=== PATIENT | male | born 1980 | race Caucasian/White ===

== ENCOUNTER 2017-05-13 11:49 | Day surgery (SDC) | payer BC ==
[~2017-05-13 11:49] MED LIST: Lactated Ringers 1,000 ML IV SCH; Sodium Chloride 0.9% 10 ML Syringe FLUSH PRN; Sodium Chloride 0.9% 2.5 ML Syringe FLUSH PRN
--- NOTE | 2017-05-13 12:49 | PCM.PREANE ---
Preanesthetic Assessment - Anesthesia/Transfusion/Family Hx Anesthesia History: Prior Anesthesia Without Reaction Other Type of Anesthesia Reaction Comment: states was nauseated after first ACL repair Family History of Anesthesia Reaction: No Transfusion History: No Prior Transfusion(s) Intubation History: Unknown - Review of Systems General: No Symptoms Pulmonary: No Symptoms Cardiovascular: No Symptoms Gastrointestinal: Difficulty Swallowing Neurological: No Symptoms Other: Reports: None - Physical Assessment Height: 5 ft 11 in Weight: 117.48 kg ASA Class: 2 Mental Status: Alert & Oriented x3 Airway Class: Mallampati = 2 Dentition: Reports: Bridge (3 teeth upper front) Thyro-Mental Finger Breadths: 2 Mouth Opening Finger Breadths: 3 ROM/Head Extension: Full Lungs: Clear to Auscultation, Normal Respiratory Effort Cardiovascular: Regular Rate, Regular Rhythm - Allergies Allergies/Adverse Reactions: Allergies Allergy/AdvReac Type Severity Reaction Status Date / Time No Known Allergies Allergy Verified 08/21/16 19:48 PreAnesthesia Questionnaire HEENT History: Reports: None Cardiovascular History: Reports: None Respiratory History: Reports: None Gastrointestinal History: Reports: None, Other (See Below) (progressive dysphagia, small hiatal hernia with associated ring) Psychiatric History: Reports: None Endocrine/Metabolic History: Reports: Obesity/BMI 30+ - Infectious Disease History Infectious Disease History: Reports: None - Past Surgical History Head Surgeries/Procedures: Reports: None HEENT Surgical History: Reports: None Respiratory Surgical History: Reports: None Musculoskeletal Surgical History: Reports: Arthroscopic Knee, Other (See Below) Other Musculoskeletal Surgeries/Procedures:: bilateral knee surgery - SUBSTANCE USE Smoking Status *Q: Former Smoker Recreational Drug Use History: No - HOME MEDS Home Medications: Home Meds . [No Known Home Meds] 08/21/16 [History] - CURRENT (IN HOUSE) MEDS Current Meds: Current Medications Lactated Ringer's (Ringers, Lactated) 1,000 mls @ 125 mls/hr IV ASDIRECTED BLAKE Sodium Chloride (Saline Flush) 10 ml FLUSH ASDIRECTED PRN PRN Reason: Keep Vein Open Sodium Chloride (Saline Flush) 2.5 ml FLUSH ASDIRECTED PRN PRN Reason: Keep Vein Open
[2017-05-13] MEDS ORDERED: fentaNYL 100 MCG/2 ML SDV ONE (12:55)
[2017-05-13] MEDS ORDERED: Propofol 200 MG/20 ML SDV ONE (12:55)
--- NOTE | 2017-05-13 12:56 | PCM.PREANE ---
Preanesthetic Assessment - Anesthesia/Transfusion/Family Hx Anesthesia History: Prior Anesthesia Without Reaction Other Type of Anesthesia Reaction Comment: states was nauseated after first ACL repair Family History of Anesthesia Reaction: No Transfusion History: No Prior Transfusion(s) Intubation History: Unknown - Review of Systems Other: Reports: None - Physical Assessment Height: 1.8 m Weight: 117.48 kg ASA Class: 2 Mental Status: Alert & Oriented x3 Airway Class: Mallampati = 2 Dentition: Reports: Normal Dentition, Bridge (3 teeth upper front (fixed)) Thyro-Mental Finger Breadths: 2 Mouth Opening Finger Breadths: 3 ROM/Head Extension: Full Lungs: Clear to Auscultation, Normal Respiratory Effort Cardiovascular: Regular Rate, Regular Rhythm - Allergies Allergies/Adverse Reactions: Allergies Allergy/AdvReac Type Severity Reaction Status Date / Time No Known Allergies Allergy Verified 08/21/16 19:48 - Blood Blood Available: No - Anesthesia Plan Pre-Op Medication Ordered: None - Acknowledgements Anesthesia Type Planned: MAC Pt an Appropriate Candidate for the Planned Anesthesia: Yes Alternatives and Risks of Anesthesia Discussed w Pt/Guardian: Yes Pt/Guardian Understands and Agrees with Anesthesia Plan: Yes PreAnesthesia Questionnaire HEENT History: Reports: None Cardiovascular History: Reports: None Respiratory History: Reports: None Gastrointestinal History: Reports: Other (See Below) (progressive dysphagia over past year, small hiatal hernia with associated ring on esophagogram) Psychiatric History: Reports: None Endocrine/Metabolic History: Reports: Obesity/BMI 30+ - Infectious Disease History Infectious Disease History: Reports: None - Past Surgical History Head Surgeries/Procedures: Reports: None HEENT Surgical History: Reports: None Respiratory Surgical History: Reports: None Musculoskeletal Surgical History: Reports: Arthroscopic Knee, Other (See Below) Other Musculoskeletal Surgeries/Procedures:: bilateral knee surgery - SUBSTANCE USE Smoking Status *Q: Former Smoker Recreational Drug Use History: No - HOME MEDS Home Medications: Home Meds . [No Known Home Meds] 08/21/16 [History] - CURRENT (IN HOUSE) MEDS Current Meds: Current Medications Lactated Ringer's (Ringers, Lactated) 1,000 mls @ 125 mls/hr IV ASDIRECTED BLAKE Sodium Chloride (Saline Flush) 10 ml FLUSH ASDIRECTED PRN PRN Reason: Keep Vein Open Sodium Chloride (Saline Flush) 2.5 ml FLUSH ASDIRECTED PRN PRN Reason: Keep Vein Open
--- NOTE | 2017-05-13 13:46 | PCM.OPNOTE ---
- General Post-Op/Procedure Note Date of Surgery/Procedure: 05/13/17 Operative Procedure(s): EGD Findings: Small hiatal hernia. Duodenitis. Pre Op Diagnosis: Dysphagia Post-Op Diagnosis: Duodenitis, hiatal hernia Anesthesia Technique: JAVIER Primary Surgeon: Jannie Gaytan Condition: Good
[2017-05-13 14:28] VITALS: BP 137/85
--- NOTE | 2017-05-13 20:38 | OR ---
SURGEON: KELLY WARREN MD DATE OF PROCEDURE: 05/13/2017 PREOPERATIVE DIAGNOSIS: Dysphagia. POSTOPERATIVE DIAGNOSES: Hiatal hernia, duodenitis. PROCEDURE PERFORMED: Diagnostic esophagogastroduodenoscopy. INSTRUMENT USED: Olympus endoscope. ANESTHESIA: MAC. EXTENT OF EXAM: To the second portion of duodenum. PREPARATION: Good. LIMITATIONS: None. INDICATION FOR EXAMINATION: The patient is a 37-year-old male, who presents with progressive dysphagia. He recently underwent an esophagram that showed a small hiatal hernia. He was started on omeprazole and scheduled for a diagnostic EGD. The patient and I discussed the procedure as well as expected perioperative course. We discussed the risks, including bleeding, or perforation. The patient verbalized understanding and wishes to proceed. PROCEDURE IN DETAIL: The patient was brought into the endoscopy suite and placed in a beach-chair position. A time-out was completed verifying the patient's name, age, date of , allergies, and procedure to be performed. A bite-block was placed in the patient's mouth and monitored anesthesia care was induced. Continuous oxygen was provided via nasal cannula throughout the procedure. After adequate sedation was achieved, a well-lubricated endoscope was placed in the patient's mouth and advanced under direct visualization to the level of second portion of duodenum. This appeared normal and a photograph was taken. The scope was then fully withdrawn while examining the color, texture, anatomy, and integrity of the mucosa of the upper GI tract. The patient was noted to have mild duodenitis in duodenal bulb. A photograph of this was taken. The scope was brought into the stomach. Photograph was taken of the pylorus as well as the esophageal hiatus. The patient's hiatal hernia appeared to be very small. Biopsies were taken of the gastric body, antrum, and fundus and sent to pathology for H. pylori testing. The scope was then brought in the distal esophagus and a photograph was taken of the hiatal hernia which again was noted to be small in size. There was no evidence of inflammation or esophagitis in the distal esophagus or around the hiatal hernia sac. The remainder of the esophagus appeared normal. The scope was then removed from the patient. The procedure was terminated. The patient was taken to the PACU in stable condition. ENDOSCOPIC DIAGNOSES: 1. Hiatal hernia. 2. Duodenitis. RECOMMENDATIONS: Follow up in clinic in 2 weeks. KLAUDIA HILLS /[id number]
== END 2017-05-13 14:15 | disposition home or self-care (01) ==
LOC: MW.SDS 11:49
PROVIDERS: ATTEND Surgery
DX: K29.50 Unspecified chronic gastritis without bleeding (principal); K29.80 Duodenitis without bleeding; K44.9 Diaphragmatic hernia without obstruction or gangrene; E66.9 Obesity, unspecified; Z68.36 Body mass index [BMI] 36.0-36.9, adult; Z98.890 Other specified postprocedural states; Z87.891 Personal history of nicotine dependence
CPT/HCPCS: 43239; 88305; 88312; J3010; J2704

== ENCOUNTER 2017-05-19 06:42 | Day surgery (SDC) | payer BC ==
[~2017-05-19 06:42] MED LIST changes: +ceFAZolin 2 GM in Premix Bag 1 BAG IV ONE
[2017-05-19] MEDS ORDERED: fentaNYL 100 MCG/2 ML SDV ONE (07:17)
[2017-05-19] MEDS ORDERED: Propofol 200 MG/20 ML SDV ONE (07:17)
[2017-05-19] MEDS ORDERED: Lidocaine 2% 5 ML SDV ONE (07:18)
[2017-05-19] MEDS ORDERED: ceFAZolin 1 GM Vial ONE ×2 (07:23→07:43)
[2017-05-19] MEDS ORDERED: Bupivacaine 0.5% 30 ML SDV ONE (07:24)
--- NOTE | 2017-05-19 07:32 | PCM.PREANE ---
Preanesthetic Assessment - Anesthesia/Transfusion/Family Hx Anesthesia History: Prior Anesthesia Reaction Type of Anesthesia Reaction: Excessive Nausea/Vomiting Other Type of Anesthesia Reaction Comment: states was nauseated after first ACL repair Family History of Anesthesia Reaction: No Transfusion History: No Prior Transfusion(s) Intubation History: Unknown - Review of Systems General: No Symptoms Pulmonary: No Symptoms Cardiovascular: No Symptoms Gastrointestinal: No Symptoms Neurological: No Symptoms Other: Reports: None - Physical Assessment NPO Status Date: 05/18/17 NPO Status Time: 19:00 O2 Sat by Pulse Oximetry: 95 Respiratory Rate: 16 Vital Signs: Last Vital Signs Temp 36.6 C 05/19/17 06:45 Pulse 85 05/19/17 06:45 Resp 16 05/19/17 06:45 BP 142/86 H 05/19/17 06:45 Pulse Ox 95 05/19/17 06:45 Height: 1.8 m Weight: 117.48 kg ASA Class: 2 Mental Status: Alert & Oriented x3 Airway Class: Mallampati = 1 Dentition: Reports: Normal Dentition ROM/Head Extension: Full Lungs: Clear to Auscultation, Normal Respiratory Effort Cardiovascular: Regular Rate, Regular Rhythm - Allergies Allergies/Adverse Reactions: Allergies Allergy/AdvReac Type Severity Reaction Status Date / Time No Known Allergies Allergy Verified 05/17/17 10:45 - Anesthesia Plan Pre-Op Medication Ordered: None - Acknowledgements Anesthesia Type Planned: General Anesthesia Pt an Appropriate Candidate for the Planned Anesthesia: Yes Alternatives and Risks of Anesthesia Discussed w Pt/Guardian: Yes Pt/Guardian Understands and Agrees with Anesthesia Plan: Yes Additional Comments: hx of rad after uri, no hx of asthma, PLAN: GET PreAnesthesia Questionnaire HEENT History: Reports: None Cardiovascular History: Reports: None Respiratory History: Reports: None Gastrointestinal History: Reports: Hiatal Hernia Psychiatric History: Reports: None Endocrine/Metabolic History: Reports: Obesity/BMI 30+ - Infectious Disease History Infectious Disease History: Reports: None - Past Surgical History Head Surgeries/Procedures: Reports: None HEENT Surgical History: Reports: None Respiratory Surgical History: Reports: None GI Surgical History: Reports: EGD Musculoskeletal Surgical History: Reports: Other (See Below) Other Musculoskeletal Surgeries/Procedures:: bilateral knee surgery - SUBSTANCE USE Smoking Status *Q: Never Smoker Recreational Drug Use History: No - HOME MEDS Home Medications: Home Meds . [No Known Home Meds] 08/21/16 [History] - CURRENT (IN HOUSE) MEDS Current Meds: Current Medications Lactated Ringer's (Ringers, Lactated) 1,000 mls @ 125 mls/hr IV ASDIRECTED BLAKE Last Admin: 05/19/17 06:58 Dose: 125 mls/hr Sodium Chloride (Saline Flush) 10 ml FLUSH ASDIRECTED PRN PRN Reason: Keep Vein Open Sodium Chloride (Saline Flush) 2.5 ml FLUSH ASDIRECTED PRN PRN Reason: Keep Vein Open Discontinued Medications Bupivacaine HCl (Marcaine 0.5%) Confirm Administered Dose 30 ml .ROUTE .STK-MED ONE Stop: 05/19/17 07:25 Cefazolin Sodium (Ancef) Confirm Administered Dose 1 gm .ROUTE .STK-MED ONE Stop: 05/19/17 07:24 Fentanyl (Sublimaze) Confirm Administered Dose 100 mcg .ROUTE .STK-MED ONE Stop: 05/19/17 07:18 Cefazolin Sodium/Dextrose 2 gm (/ Premix) 50 mls @ 100 mls/hr IV ONETIME ONE Stop: 05/15/17 20:18 Lidocaine (Xylocaine-Mpf 2%) Confirm Administered Dose 5 ml .ROUTE .STK-MED ONE Stop: 05/19/17 07:19 Propofol (Diprivan 20 Ml) Confirm Administered Dose 200 mg .ROUTE .STK-MED ONE Stop: 05/19/17 07:18
[2017-05-19] MEDS ORDERED: fentaNYL 100 MCG/2 ML SDV IVPUSH PRN (07:40)
[2017-05-19] MEDS ORDERED: Ondansetron 4 MG/2 ML SDV ONE (08:08)
[2017-05-19] MEDS ORDERED: diphenhydrAMINE 50 MG/ML SDV ONE (08:08)
[2017-05-19] MEDS ORDERED: Metoclopramide 10 MG/2 ML SDV ONE (08:08)
[2017-05-19] MEDS ORDERED: Ketorolac 30 MG/ML SDV ONE (08:08)
[2017-05-19] MEDS ORDERED: HYDROmorphone 2 MG/ML Syringe ONE (08:09)
--- NOTE | 2017-05-19 08:39 | PCM.OPNOTE ---
- General Post-Op/Procedure Note Date of Surgery/Procedure: 05/19/17 Operative Procedure(s): umbilical hernia repair Findings: 2-3 mm umbilical fascia defect Pre Op Diagnosis: Umbilical hernia Post-Op Diagnosis: same Anesthesia Technique: General LMA Primary Surgeon: Jannie KAISER in mLs: 5 Condition: Good
--- NOTE | 2017-05-19 09:14 | PCM.POSTAN ---
POST ANESTHESIA ASSESSMENT - MENTAL STATUS Mental Status: Alert, Oriented - RESPIRATORY Respiratory Status: Respiratory Rate WNL, Airway Patent, O2 Saturation Stable - CARDIOVASCULAR CV Status: Pulse Rate WNL, Blood Pressure Stable - GASTROINTESTINAL GI Status: No Symptoms - POST OP HYDRATION Hydration Status: Adequate & Stable
--- NOTE | 2017-05-19 09:14 | PCM48HPAN ---
Post Anesthesia Note - EVALUATION WITHIN 48HRS OF ANESTHETIC Vital Signs in Normal Range: Yes Patient Participated in Evaluation: Yes Respiratory Function Stable: Yes Airway Patent: Yes Cardiovascular Function Stable: Yes Hydration Status Stable: Yes Pain Control Satisfactory: Yes Nausea and Vomiting Control Satisfactory: Yes Mental Status Recovered: Yes
[2017-05-19 10:05] VITALS: BP 118/78
--- NOTE | 2017-05-19 10:13 | OR ---
SURGEON: KELLY WARREN MD DATE OF PROCEDURE: 05/19/2017 PREOPERATIVE DIAGNOSIS: Umbilical hernia. POSTOPERATIVE DIAGNOSIS: Umbilical hernia. PROCEDURE PERFORMED: Umbilical hernia repair. ANESTHESIA: General LMA. ESTIMATED BLOOD LOSS: 5 mL. FINDINGS: A 2-3 mm defect just left to the umbilical stock, hernia containing preperitoneal fat. COMPLICATIONS: None. INDICATIONS: The patient is a 37-year-old male, who presents with a periumbilical hernia that is increasing in size and is becoming painful. A decision was made to perform a primary umbilical hernia repair. I discussed the procedure as well as expected perioperative course. I discussed the risks, including bleeding, infection, or damage to surrounding structures. The patient verbalized understanding and wishes to proceed. PROCEDURE IN DETAIL: The patient was brought into the operating room and placed on the OR table in supine position. A time-out was completed verifying the patient's name, age, date of , allergies, and procedure to be performed. The abdomen was prepped and draped in the usual standard fashion. The periumbilical area was anesthetized with 0.5% Marcaine plain. A 15 blade was used to make a periumbilical incision along the left lateral half of the umbilicus overlying the hernia sac. Cautery was used to dissect down into the subcutaneous tissues. A bulbous hernia sac was encountered. Metzenbaum scissors and blunt dissection were used to clear away the hernia sac from the surrounding subcutaneous fat down to the level of the fascia. Metzenbaum scissors was used to dissect the umbilical hernia sac off the umbilical skin. Once I had dissected the hernia sac free from all surrounding structures and down to the level of the fascia, I entered the sac. The sac contained preperitoneal fat. The sac was excised and sent to pathology. I attempted to reduce the preperitoneal fat into the abdomen, but given the small defect in the fascia, I was unable to do so. The fat was then transected at the level of the fascia using a cautery. This was then sent with the hernia sac. The fascial defect appeared to be 2-3 mm in size. A decision was made to repair this primarily with 0 Ethibond sutures. [id number] sutures were placed over the fascial defect bringing effectively closing it. Cautery was used to achieve hemostasis. The wound was then closed with a 3-0 interrupted Vicryl and the subcutaneous tissues, and the skin was closed using a running 4-0 Monocryl suture. Steri-Strips and sterile dressings were applied. The patient tolerated the procedure well and was taken to the PACU in stable condition. KLAUDIA HILLS /[id number]
== END 2017-05-19 10:15 | disposition home or self-care (01) ==
LOC: MW.SDS 06:42
PROVIDERS: ATTEND Surgery
DX: K42.9 Umbilical hernia without obstruction or gangrene (principal); E66.9 Obesity, unspecified; Z68.36 Body mass index [BMI] 36.0-36.9, adult; Z98.890 Other specified postprocedural states
CPT/HCPCS: 49585; J0690; J1170; J1200; J1885; J2405; J2765; J3010; J7120; 00830; 88302; J2704